=== PATIENT | female | born 1990 | race Caucasian/White ===

== ENCOUNTER 2017-05-04 22:14 | Emergency (ER) | payer SELFPAY ==
[2017-05-04 22:19] VITALS: TEMP 98; BMI 23.8
[2017-05-04 23:21] VITALS: BP 104/57; PULSE 76
--- NOTE | 2017-05-04 23:56 | PDOC ---
History of Present Illness - History of Present Illness Initial Comments: 05/04/17 23:56 Patient is a 26 year old female <Baldev Biggs - Last Filed: 05/04/17 23:55> - General History Source: Patient Exam Limitations: No Limitations - History of Present Illness Initial Comments: 05/05/17 00:48 26yo Female patient with no significant past medical history presents to ED c/o rash that began 3 weeks ago. Patient states she first noticed a single rash or her abdomen that was extremely itchy. She states over the next few days to weeks more rashes began "popping" up on lower leg, upper arms, back and trunk. Patient states, " I'm covered in it." She denies fever, sore throat, ear pain, h /a, n/v/d, back pain, diff breathing, abd pain, or any other complaints at this time. LNMP: 4 days ago. Patient also states her mother gave her some cream, which burned her so she stopped using it. Timing/Duration: other (See HPI) Severity: moderate Modifying Factors: improves with: medication. worse with: cold therapy, eating , immobilization, movement, rest, other Associated Symptoms: reports: rash. denies: denies symptoms, chest pain, cough , diaphoresis, fever/chills, headaches, loss of appetite, malaise, nausea/ vomiting, seizure, shortness of breath, syncope, weakness, other <Shellie Rodriguez - Last Filed: 05/05/17 01:27> - General Chief Complaint: Rash Stated Complaint: RASH Time Seen by Provider: 05/04/17 23:54 Past History - Past Medical History Other medical history: denies - Psycho/Social/Smoking Cessation Hx Suicidal Ideation: No Smoking History: Never smoked <Baldev Biggs - Last Filed: 05/04/17 23:55> - Travel Traveled outside of the country in the last 30 days: No Close contact w/someone who was outside of country & ill: No <Shellie Rodriguez - Last Filed: 05/05/17 01:27> - Past Medical History Allergies/Adverse Reactions: Allergies Allergy/AdvReac Type Severity Reaction Status Date / Time No Known Allergies Allergy Verified 05/04/17 22:19 Home Medications: Ambulatory Orders Betamethasone Dipropionate [Diprolene 0.05% Ointment -] 1 applic TP BID #1 tube 05/05/17 Review of Systems - Review of Systems Able to Perform ROS?: Yes Is the patient limited Italian proficient: No Integumentary: Yes: Erythema, Pruritus, Rash All Other Systems: Reviewed and Negative <Shellie Rodriguez - Last Filed: 05/05/17 01:27> *Physical Exam - Vital Signs Last Vital Signs Temp Pulse Resp BP Pulse Ox 98 F 76 18 104/57 100 05/04/17 22:17 05/04/17 23:19 05/04/17 23:19 05/04/17 23:19 05/04/17 23:19 <Baldev Biggs - Last Filed: 05/04/17 23:55> - Vital Signs Last Vital Signs Temp Pulse Resp BP Pulse Ox 98 F 76 18 104/57 100 05/04/17 22:17 05/04/17 23:19 05/04/17 23:19 05/04/17 23:19 05/04/17 23:19 - Physical Exam General Appearance: Yes: Nourished, Appropriately Dressed. No: Apparent Distress, Mild Distress, Moderate Distress, Severe Distress HEENT: positive: EOMI, DEJA, Normal ENT Inspection, Normal Voice, Symmetrical, TMs Normal, Pharynx Normal. negative: Pharyngeal Erythema, Tonsillar Exudate, Tonsillar Erythema, Nasal Congestion, Rhinorrhea, Sinus Tenderness, TM Bulging, TM Dull, TM Erythema Neck: positive: Trachea midline, Supple. negative: Decreased range of motion, Stridor, Lymphadenopathy (R), Lymphadenopathy (L), Rigidity, Tender lateral, Tender midline Respiratory/Chest: positive: Lungs Clear, Normal Breath Sounds. negative: Chest Tender, Respiratory Distress, Accessory Muscle Use, Labored Respiration, Rapid RR, Rhonchi, Stridor, Wheezing Cardiovascular: positive: Regular Rhythm, Regular Rate Gastrointestinal/Abdominal: positive: Normal Bowel Sounds, Soft. negative: Tender, Distended, Guarding, Rebound, Tenderness Musculoskeletal: positive: Normal Inspection. negative: CVA Tenderness, Vertebral Tenderness Extremity: positive: Normal Capillary Refill, Normal Inspection, Normal Range of Motion. negative: Pedal Edema, Swelling, Calf Tenderness, Erythema, Inflammation Integumentary: positive: Normal Color, Dry, Warm, Rash (Plaque like pruritic rash with dry scales centrally, raised borders and erythema base to patient abdomen, back, upper and lower extremities.) Neurologic: positive: field appraiser II-XII NML intact, Fully Oriented, Alert, Normal Mood/ Affect, Normal Response, Motor Strength 5/5 <Shellie Rodriguez - Last Filed: 05/05/17 01:27> Medical Decision Making - Medical Decision Making 05/04/17 23:56 26 year old female <Baldev Biggs - Last Filed: 05/04/17 23:55> *DC/Admit/Observation/Transfer <Baldev Biggs - Last Filed: 05/04/17 23:55> - Discharge Dispostion Admit: No <Shellie Rodriguez - Last Filed: 05/05/17 01:27> Diagnosis at time of Disposition: Lichen planus - Discharge Dispostion Disposition: HOME Condition at time of disposition: Stable - Prescriptions Prescriptions: Betamethasone Dipropionate [Diprolene 0.05% Ointment -] 1 applic TP BID #1 tube - Patient Instructions Printed Discharge Instructions: DI for Lichen Planus Additional Instructions: Follow up with Dermatology. Call Dr. Yanez [phone] Lee [phone] or [facility] at [phone]. Call each group to see if you can schedule early appointment. Take medications as prescribed. You should not use Topical Ointment more than twice a day. Do not scratch areas. Return if symptoms worsen or any concerns for further evaluation. Your medication I am using to treat you is called Betamethasone Dipropionate 0.05%. This is a high potency steroid. You should avoid direct sunlight and stay hydrated by drinking plenty water. Print Language: TRINIDADIAN
[2017-05-05 01:02] LABS: URINE APPEARANCE CLEAR; URINE BILIRUBIN NEGATIVE (NEGATIVE); URINE BLOOD NEGATIVE (NEGATIVE); URINE COLOR YELLOW; URINE GLUCOSE (UA) NEGATIVE (NEGATIVE); URINE KETONE NEGATIVE (NEGATIVE); URINE LEUK ESTERASE TRACE (NEGATIVE); URINE NITRITE NEGATIVE (NEGATIVE); URINE PROTEIN NEGATIVE (NEGATIVE); URINE UROBILINOGEN NEGATIVE mg/dL (0.2-1.0)
[2017-05-05 01:11] LABS: URINE BACTERIA RARE /hpf (NONE SEEN); URINE MUCUS MODERATE; URINE RBC 1 /hpf (0-3); URINE WBC 7 /hpf (3-5)
[2017-05-05] MEDS ORDERED: predniSONE 20 MG TABLET (UD) PO ONE (01:18)
[2017-05-05] MEDS ORDERED: predniSONE 20 MG TABLET (UD) ONE (01:36)
== END 2017-05-05 01:43 | disposition home or self-care (01) ==
LOC: JER 22:14
DX: L43.8 Other lichen planus (principal)
CPT/HCPCS: 81003; 81015; 84703; 99281-25